=== PATIENT | female | born 1950 | race Caucasian/White ===

== ENCOUNTER 2016-11-10 06:24 | Day surgery (SDC) | payer MEDICARE ==
[2016-11-10] MEDS ORDERED: LACTATED RINGERS 1,000 ML ONE (06:31)
[2016-11-10] MEDS ORDERED: IV START KIT ONE (06:31)
[2016-11-10] MEDS ORDERED: PROPOFOL 40 ML IV ONE (07:12)
[2016-11-10] MEDS ORDERED: PROPOFOL 20 ML IV ONE (07:58)
== END 2016-11-10 08:40 | disposition home or self-care (01) ==
LOC: SDC 06:24
PROVIDERS: ATTEND Family Medicine
PROC: 0DJD8ZZ Inspection of Lower Intestinal Tract, Via Natural or Artificial Opening Endoscopic (ICD-10-PCS; principal; 2016-11-10)
DX: Z12.11 Encounter for screening for malignant neoplasm of colon (principal); K57.30 Diverticulosis of large intestine without perforation or abscess without bleeding; Z80.0 Family history of malignant neoplasm of digestive organs; E78.5 Hyperlipidemia, unspecified; Z88.6 Allergy status to analgesic agent; Z88.0 Allergy status to penicillin
CPT/HCPCS: 45378; J7120